=== PATIENT | male | born 1945 | race Caucasian/White ===

== ENCOUNTER 2019-04-11 17:23 | Emergency (ER) | payer BC, MEDICARE, OTHER ==
[2019-04-11] MEDS ORDERED: traMADol 50 MG Tab PO ONE (17:24)
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
[2019-04-11 19:18] VITALS: BP 161/73
[2019-04-11] MEDS ORDERED: Morphine 4 MG/ML Syringe IM ONE (19:19)
[2019-04-11] MEDS ORDERED: Acetaminophen/HYDROcodone 325-5 MG Tab PO ONE (19:24)
[2019-04-11] MEDS ORDERED: Ketorolac 30 MG/ML SDV IM ONE (19:24)
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
== END 2019-04-11 20:41 | disposition left against medical advice (07) ==
LOC: FB.ED 17:23
DX: S22.41XA Multiple fractures of ribs, right side, initial encounter for closed fracture (principal); J44.9 Chronic obstructive pulmonary disease, unspecified; E78.00 Pure hypercholesterolemia, unspecified; I10 Essential (primary) hypertension; F17.210 Nicotine dependence, cigarettes, uncomplicated; V43.52XA Car driver injured in collision with other type car in traffic accident, initial encounter; Z79.899 Other long term (current) drug therapy
CPT/HCPCS: 36415; 71101; 80048; 80076; 85025; 85610; 96372; 99284; A9270; J1885